=== PATIENT | male | born 1985 | race African-American/Black ===

== ENCOUNTER 2016-10-13 20:20 | Emergency (ER) | payer OTHER ==
[~2016-10-13] VITALS: Ht 165.1 cm; Wt 98.9 kg
[2016-10-13] MEDS ORDERED: IPRATROPIUM 0.5MG/ALBUTEROL 2.5MG INH SOL UD 3ML (DUONEB)(J7620) NEB ONE (21:45)
[2016-10-13] MEDS ORDERED: methylPREDNISolone INJ 125 MG/2 ML VIAL (J2930) IV ONE (21:45)
[2016-10-13 22:03] LABS: BASO # 0.1 K/mm3 (0.0-0.2); BASO % 0.9 % (0.0-1.0); EOS # 0.5 K/mm3 (0.0-0.50); EOS % 5.8 % (0.0-3.0); LARGE UNSTAINED CELL # 0.2 K/mm3 (0.0-0.4); LYMPH # 1.9 K/mm3 (1.5-4.5); LYMPH % 21.9 % (24.0-44.0); MEAN CORPUSCULAR HEMOGLOBIN 32.3 pg (27.0-33.0); MEAN CORPUSCULAR HGB CONC 34.3 g/dl (32.0-36.5); MONO # 0.8 K/mm3 (0.0-0.8); MONO % 9.9 % (0.0-5.0); NEUTROPHILS # 4.7 K/mm3 (1.8-7.7); NEUTROPHILS % 59.5 % (36.0-66.0); PLATELET COUNT, AUTOMATED 199 k/mm3 (150-450); WHITE BLOOD COUNT 7.9 K/mm3 (4.0-10.0)
[2016-10-13 22:21] LABS: ANION GAP 7 MEQ/L (8-16); BLOOD UREA NITROGEN 12 MG/DL (7-18); CALCIUM LEVEL 8.6 MG/DL (8.5-10.1); CARBON DIOXIDE LEVEL 29 MEQ/L (21-32); CHLORIDE LEVEL 107 MEQ/L (98-107); CREATININE FOR GFR 0.94 MG/DL (0.70-1.30); GLOMERULAR FILTRATION RATE > 60.0 (>60); GLUCOSE, FASTING 98 MG/DL (70-105); POTASSIUM SERUM 4.3 MEQ/L (3.5-5.1); SODIUM LEVEL 143 MEQ/L (136-145)
[2016-10-13] MEDS ORDERED: ISOVUE-370 76% 100ML VIAL (Q9967) As Ordered ONE (22:44)
--- NOTE | 2016-10-13 23:30 | REPUSA ---
History: shortness of breath Comparison: No prior CTA of the chest available Technique: A CT-pulmonary angiogram was performed. A dose of intravenous contrast was administered. A xial images were displayed, as were sagittal and coronal reconstructions. A 3-D model was also render ed. Findings: No CT evidence of pulmonary embolism is identified. 2 x 0.8 cm left thyroid nodule is noted. Follow up with thyroid US is recommended. There is no evidence of thoracic aortic aneurysm or dissection. No air space consolidation is identified in the lungs. There is no evidence of pulmonary edema. No pa thologically enlarged hilar or mediastinal lymph nodes are identified. No significant pleural or corky cardial fluid collection is seen. There is no evidence of pneumothorax. Mild degenerative changes are noted in the spine. The included portion of the upper abdomen does not show significant abnormality. Impression: No evidence of pulmonary embolism is identified. 2 x 0.8 cm left thyroid nodule is noted. Follow up with thyroid US is recommended.
[2016-10-13] MEDS ORDERED: PRED50TA PO (23:57)
[2016-10-13] MEDS ORDERED: ALBU17IN INH (23:57)
[2016-10-14 00:16] VITALS: BP 133/90
--- NOTE | 2016-10-14 00:28 | ED PDOC ---
Post-Departure Follow-Up radha alatorre faxed formal report of cta for fu Ellen Lovett MD Oct 14, 2016 00:28
[2016-10-14] MEDS ORDERED: ALBUTEROL 90 MCG/ACT 8GM HFA INHALER INH ONE (00:30)
--- NOTE | 2016-10-14 02:58 | REP ---
Clinical: Shortness of breath . Comparison: None . Technique: PA and lateral. Findings: The mediastinum and cardiac silhouette are normal. The lung merritt are clear and without acute consolidation, effusion, or pneumothorax. The skeletal structures are intact and normal. Impression: 1. No acute cardiopulmonary process. Signed by Jacob Cook MD 10/14/2016 02:49 A
--- NOTE | 2016-10-15 08:16 | ECGEPIP ---
Stationary ECG Study [facility] - ED Test Date: 2016-10-13 Pat Name: RAFI MORALES Department: Room: - Gender: M Marketing Developer: SHABNAM : 1985 Requested By: RADHA Mace PA-C Order Number: [id number] Reading MD: Derrick Miranda Measurements Intervals [place] Rate: 73 P: 51 [place]: 213 QRS: 13 QRSD: 91 T: 7 QT: 377 QTc: 417 Interpretive Statements SINUS RHYTHM WITH FIRST DEGREE AV BLOCK POSSIBLE LAE NO PRIORS Electronically Signed On 10-15-2016 8:16:32 EDT by Derrick Miranda
== END 2016-10-14 00:23 | disposition home or self-care (01) ==
LOC: M ED 22:05
DX: J98.01 Acute bronchospasm (principal); J30.2 Other seasonal allergic rhinitis; E04.1 Nontoxic single thyroid nodule; R06.02 Shortness of breath; Z87.891 Personal history of nicotine dependence
CPT/HCPCS: 71020; 71275; 80048; 82550; 82553; 85025; 85379; 93005; 94640; 96374; 99284; J2930; Q9967

== ENCOUNTER → 2017-01-15 | Outpatient (CLI) | payer OTHER ==
[~2017-01-15] MED LIST: ALBU17IN INH; METHACHOLINE KIT (J7674) INH ONE; PRED50TA PO
--- NOTE | 2017-01-15 08:19 | PFTRPT ---
Tech: Mercedez JOHNSON RRT Age: 31 Sex: Male Race: Black Height: 64.00 Inches Weight: 227.00 Lbs BSA: 2.06 Diagnosis: R06.02 METHACHOLINE CHALLENGE REPORT: ORDERING PROVIDER: ROSARIO Piedra DATE OF SERVICE: 01/15/17 INTERPRETATION: The study was of excellent technical quality. Under protocol, methacholine was administered. Some mild difficulty with the required maneuver. At a dose of 0.25 mg (1.375 CDUs), a 20% decline in the FEV1 was noted. The PC20 of 0.25 is significant. Flow rates returned to baseline post bronchodilator administration. IMPRESSION: Positive methacholine challenge study. MTDD
== END ==
LOC: M CARPUL 07:18
PROVIDERS: ATTEND Nurse Practitioner Adult Health
DX: R06.02 Shortness of breath (principal)
CPT/HCPCS: 94070; J7674